=== PATIENT | female | born 1975 | race Caucasian/White ===

== ENCOUNTER → 2017-01-01 | Outpatient (CLI) | payer OTHER | LOC: MC.RAD 11:32 | DX: Z12.31 Encounter for screening mammogram for malignant neoplasm of breast (principal) ==

== ENCOUNTER 2017-09-14 09:42 | Day surgery (SDC) | payer BC ==
[~2017-09-14] VITALS: Ht 165.1 cm; Wt 77.0 kg
[2017-09-14] MEDS ORDERED: SYNTHROID0.05 MG/TA PO (10:15)
[2017-09-14] MEDS ORDERED: ADDERALL30 MG PO (10:15)
[2017-09-14 10:19] VITALS: BP 112/77; PULSE 80; TEMP 97.5
[2017-09-14 11:27] VITALS: BP 110/85; PULSE 82
[2017-09-14 11:42] VITALS: BP 112/77; PULSE 81
[2017-09-14 11:57] VITALS: BP 109/86; PULSE 82
[2017-09-14 12:12] VITALS: BP 110/75; PULSE 84
[2017-09-14 16:34] VITALS: BP 110/82; PULSE 75
== END 2017-09-14 12:23 | disposition home or self-care (01) ==
LOC: SDCO 09:42
DX: D12.5 Benign neoplasm of sigmoid colon (principal); K92.1 Melena; K64.1 Second degree hemorrhoids; Z83.71 Family history of colonic polyps; Z79.82 Long term (current) use of aspirin; D50.9 Iron deficiency anemia, unspecified; Z90.710 Acquired absence of both cervix and uterus
CPT/HCPCS: J2250; J2405; J3010; J7030

== ENCOUNTER → 2019-01-29 | Outpatient (CLI) | payer BC ==
[~2019-01-29] MED LIST: ADDERALL30 MG PO; SYNTHROID0.05 MG/TA PO
== END ==
LOC: MC.RAD 08:09
DX: Z12.31 Encounter for screening mammogram for malignant neoplasm of breast (principal)

== ENCOUNTER → 2021-02-22 | Outpatient (CLI) | payer BC | LOC: MC.RAD 10:58 | DX: Z12.31 Encounter for screening mammogram for malignant neoplasm of breast (principal) ==

== ENCOUNTER 2023-10-22 12:51 | Emergency (ER) | payer BC ==
[~2023-10-22] VITALS: Ht 152.4 cm; Wt 68.2 kg
[2023-10-22 13:01] VITALS: TEMP 97.5
[2023-10-22 14:00] VITALS: BP 137/77; PULSE 73
[2023-10-22] MEDS ORDERED: CRUTCHES MC (14:23)
== END 2023-10-22 14:28 | disposition home or self-care (01) ==
LOC: COL.ER 12:51
DX: S50.02XA Contusion of left elbow, initial encounter (principal); S70.02XA Contusion of left hip, initial encounter; S70.12XA Contusion of left thigh, initial encounter; W11.XXXA Fall on and from ladder, initial encounter; W22.03XA Walked into furniture, initial encounter; Y92.59 Other trade areas as the place of occurrence of the external cause; Y99.0 Civilian activity done for income or pay